=== PATIENT | male | born 1995 | race Caucasian/White ===

== ENCOUNTER 2020-09-14 14:58 | Outpatient (CLI) | payer OTHER ==
[2020-09-14 16:18] VITALS: BP 132/89
--- NOTE | 2020-09-14 16:18 | SLEEP CARE CONSULTATION ---
Information from patient questionnaire entered by Zachary Higginbotham. I have reviewed and concur with the information entered by Zachary Higginbotham. This document represents the service I personally performed and the decisions made by me, Doris Marie ARNP. History of Present Illness Service Date and Time: 09/14/2020 1454 Reason for Visit: New patient Chief Complaint: reports: Unrefreshed sleep, Snoring, Excessive daytime sleepiness, Observed pauses in breathing, Frequent awakenings at night Date of Onset: ~ 6 years Usual bedtime: 2200 Time it takes to fall asleep: 2 mins Snores at night: Yes Observed to quit breathing while asleep: Yes Sleeps alone due to snoring: No Number of times waking at night: 2-4 Reasons for waking at night: reports: Snoring, Other (unknown) Toss, Turn, or Twitch while sleeping: Yes Recalls having dreams: Yes Usually gets out of bed at: 0510; weekends up at 8-9 am Feels refreshed in the morning: No Morning headache: No Sleepy or fatigued during the day: Yes Ever fallen asleep while driving: No (drowsy driving, no accidents) Takes day naps: No Dreams during day naps: Yes Prior sleep studies: No Additional HPI information: I had the pleasure of seeing ARI CLEMENTS today regarding the possibility of him having a sleep disorder. His current complaints are snoring, daytime sleepiness and frequent night awakenings. He states daytime tiredness is a big p roblem and has been for years. His states he will stop breathing when sleeping and gasping for air in his sleep. He also snores pretty loud but his does not sleep in separate room. He is more concerned about the fatigue. He will wake up frequently during the night for no apparent reason. He has difficulty getting back to sleep, sometimes up to 45 minutes. 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 Patient is and lives in [place]. Have you smoked in the past 12 months: No Alcohol use: Yes Alcohol amount and frequency: 1 weekly Caffeine use: Yes Caffeine amount and frequency: 1 every few days Family History Family history of sleep disordered breathing: Yes (My Dad) Family Hx Sleep Apnea: Father: Snoring Allergies and Home Medications Drug allergies reviewed: Yes (NKDA) Home medication list reviewed: Yes (none) Review of Systems Weight gain over past 5 years: 20 Cardiovascular: reports: high blood pressure Gastrointestinal: denies: heartburn Neurological: denies: headaches Psychiatric: denies: anxiety, depression, mood disorder Ear/Nose/Throat: reports: nasal congestion, tonsillectomy, wisdom teeth removed Endocrine: reports: sluggishness (tired) Musculoskeletal: reports: joint pain, back pain Physical Exam Blood Pressure: 132/89 Cuff size: wrist Heart Rate: 70 O2 Saturation: 98 Height: 5 ft 11 in Weight: 200 lb Body Mass Index: 27.8 BMI Classification: Overweight Neck circumference: 15.5 (inches) Nostrils: patent to airflow Mouth and throat: narrow oropharynx Soft palate: long Hard palate: normal Uvula: normal Uvula visualization: 100% Mallampati Class I Tongue: normal in size Tonsils: absent bilaterally Chin and jaw: normal size and position Neck: normal w/o lymphadenopathy or thyromegaly Heart: regular rate and rhythm Lungs: clear bilaterally Impression and Plan 1. Suspected Obstructive Sleep Apnea-Hypopnea Syndrome, as suggested by a history of loud and irregular snoring, observed cessation of breath while asleep, gasping or choking in sleep, frequent awakening during the night, unrefreshed sleep, cognitive impairment, and excessive daytime sleepiness. Narrow oropharynx and obesity are common predisposing factors for obstructive sleep apnea-hypopnea syndrome. I recommend proceeding to polysomnography to confirm the diagnosis and to assess severity. If the patient has significant sleep disordered breathing, a manual CPAP titration study will also be performed to find the optimal treatment pressure. I informed the patient of what the sleep studies involve and after some discussion, obtained agreement to proceed. The pathophysiology of obstructive sleep apnea-hypopnea syndrome was discussed with the patient and health risks of cardiovascular and cerebrovascular disease if not treated. 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 Patient agreed to plan. * Schedule polysomnography +- manual CPAP titration study and return in 1-2 weeks after the study to discuss result and initiate therapy. * Avoid long distance driving or driving when feeling sleepy. * Avoid alcohol, sedative and muscle relaxant around bedtime. * Attempt to lose weight. * Review instructions provided by trained office staff on how to prepare for the sleep study. * Return for follow-up after sleep study completed. Counseling Topics: Weight loss health impact Visit Type: In Office Time Spent with Patient (minutes): 30 Provider Statement: I spent 100% of the Face to Face Visit with the patient with greater than 50% spent counseling the patient and coordination of care.
== END 2020-09-14 14:59 | disposition home or self-care (01) ==
LOC: SC 14:58
PROVIDERS: ATTEND Nurse Practitioner Family
DX: R06.83 Snoring (principal); R06.81 Apnea, not elsewhere classified; G47.8 Other sleep disorders; R41.89 Other symptoms and signs involving cognitive functions and awareness; G47.10 Hypersomnia, unspecified; E66.3 Overweight; Z68.27 Body mass index [BMI] 27.0-27.9, adult
CPT/HCPCS: 99203; 99212

== ENCOUNTER 2020-09-29 09:50 | Outpatient (CLI) | payer OTHER | END 2020-09-29 09:51 | disposition home or self-care (01) | LOC: SC 09:50 | PROVIDERS: ATTEND Nurse Practitioner Family | DX: G47.33 Obstructive sleep apnea (adult) (pediatric) (principal); R09.02 Hypoxemia; E66.3 Overweight; Z68.27 Body mass index [BMI] 27.0-27.9, adult | CPT/HCPCS: 95806 ==

== ENCOUNTER 2020-10-14 17:06 | Outpatient (CLI) | payer OTHER ==
--- NOTE | 2020-10-14 17:25 | SLEEP CARE CONSULTATION ---
Information from patient questionnaire entered by Zachary Higginbotham. I have reviewed and concur with the information entered by Zachary Higginbotham. This document represents the service I personally performed and the decisions made by me, Doris Marie ARNP. History of Present Illness Service Date and Time: 10/14/20201705 Initial [place] Sleepiness Scale score: 14 (in 2020) Current [place] Sleepiness Scale score: 14 Additional HPI information: ARI CLEMENTS returns via Telehealth visit for follow up and results of the recently performed home sleep study. He was found to have moderate obstructive sleep apnea with an average AHI of 26.0 and fariha oxygen saturation of 85%. I explained the pathophysiology behind obstructive sleep apnea. We then spent quite a bit of time discussing different treatment options. For mild obstructive sleep apnea, surgery and oral appliance are alternatives to nasal CPAP therapy but in moderate or severe cases, nasal CPAP is the most effective and reliable treatment. Because apnea is primarily in supine position, then positional management therapy could be effective. Methods discussed such as positioning with pillows, using a T-shirt with tennis balls in the back, and shown commercial products that have a pillow format on back to prevent supine sleep. I reviewed the impact of weight changes on sleep apnea and strongly recommended losing weight. After some discussion, the patient opted to go with the nasal CPAP therapy. Nasal autoCPAP set at 4-15 cmH20 will be ordered with rationale explained. A manual titration study will be ordered if unable to find optimal pressure with office adjustments. I explained how CPAP machine works and what to expect when using the machine. Using CPAP every night in order to get used to it was emphasized. Patient advised to put CPAP mask on before getting into bed so as not to fall asleep without CPAP. To assist acclimation to CPAP use, it could also be used for a short time during day while reading or watching TV. The patient was instructed to call the CPAP supplier to discuss any mechanical problem that may occur. If the mask given is uncomfortable or is difficult to keep on through the night even with adjustment, contact the CPAP supplier as many will replace with another mask style if notified before 30 days. If snoring or perceives is not getting enough air or too much air from the machine, notify this office. Patient counseled not drink alcohol less than 4 hours before bedtime as it can increase snoring and apnea. Patient was cautioned about risks of drowsy driving until sleepiness symptoms resolve. Sleep Study - Results Type of Sleep Study: Home sleep study Prior sleep studies: No Polysomnography/Home Sleep Study results: Physician Impression: The quality of the study is good. The length of the study is adequate (> 240 minutes). Please also see the tabulated and graphic data. 1. Obstructive Sleep Apnea-Hypopnea (ICD-10 G47.33), moderate, with an AHI of 26.0/hr and fariha SaO2 of 85%. During the study, the patient had 146 apneas (146 obstructive, 0 central, 0 mixed) and 22 hypopneas. The longest episode lasted 113.0 seconds. The patient only slept supine during this study (supine AHI was 26.1 and non-supine, 0.00). 2. Hypoxemia (ICD-10 R09.02), mild, with the lowest oxygen saturation of 85 % and 21.8 minutes with SaO2 under 90%. Baseline oxygen saturation was normal (Average oxygen saturation was 92%). Allergies and Home Medications Home medication list reviewed: Yes (no new medications) Review of Systems Review of systems same as previous: Yes (no changes) Physical Exam Vital signs obtained and entered by: Telehealth visit to reduce exposure during Covid pandemic Height: 5 ft 11 in Impression and Plan 1. Obstructive Sleep Apnea-Hypopnea Syndrome, moderate, with lowest oxygen saturation of 85%. Obviously this is the cause of the patients symptoms of unrefreshed sleep, and excessive daytime sleepiness. Positive pressure therapy could benefit hypertension. As mentioned above, the patient will be started on nasal autoCPAP therapy with pressure set at 4-15 cmH2O. Compliance guidelines also reviewed. A copy of compliance guidelines will be given for reference at check out. Because the apnea is more severe supine, I instructed to avoid sleeping supine using pillow positioning until able to start CPAP use. * Nasal auto CPAP therapy, pressure at 4-15 cm H2O. * Attempt to lose weight. * Avoid alcohol consumption near bedtime. * Avoid supine sleep until using CPAP. * The patient is again cautioned about driving until sleepiness completely resolves. * Return one month after CPAP obtained. I will assess response to therapy and compliance at that time. Counseling Topics: Weight loss health impact Visit Type: Telehealth Video Video Type: VSee Patient Location: Home Location of Provider: Office Patient agrees and consents to this telehealth visit type: Yes Patient agrees to have their insurance billed: Yes Time Spent with Patient (minutes): 16 Provider Statement: I spent 100% of the Telehealth Video Call with the patient with greater than 50% spent counseling the patient and coordination of care.
== END 2020-10-14 17:07 | disposition home or self-care (01) ==
LOC: SC 17:06
PROVIDERS: ATTEND Nurse Practitioner Family
DX: G47.33 Obstructive sleep apnea (adult) (pediatric) (principal)

== ENCOUNTER 2020-12-06 13:03 | Outpatient (CLI) | payer OTHER ==
--- NOTE | 2020-12-06 13:45 | SLEEP CARE CONSULTATION ---
Information from patient questionnaire entered by Denia Rodriguez. I have reviewed and concur with the information entered by Denia Rodriguez. This document represents the service I personally performed and the decisions made by , Doris Marie ARNP. History of Present Illness Service Date and Time: 12/06/2020 1303 Previous diagnosis: Moderate, Obstructive Sleep Apnea-Hypopnea Syndrome AHI: 26.0 (in 2020) Reason for follow up: first compliance Equipment type: CPAP Equipment obtained from: Other ([facility]; got initial supplies) Mask style: Full face Mask brand: Resmed Backup mask available: Yes (other mask) Last cushion change: 30 days Prior sleep studies: Yes Year and Where: 2020 - [facility] Type of Sleep Study: Home sleep study HPI additional information: ARI CLEMENTS was diagnosed to have moderate, AHI 26.0, obstructive sleep apnea-hypopnea syndrome and returned today for CPAP therapy first compliance follow-up. CPAP Compliance Data - Data Reviewed with Patient Average duration of nightly device use: 7 hr 7 min Compliance rate %: 77 Current pressure setting (cmH2O): 4-15 (median 5.5, avg 7.7, max 9.4) Humidity settin Average residual AHI: 1.7 Subjective Missed days of use due to: reports: illness Patient concerns: reports: mask discomfort. denies: aerophagia, air blowing in eyes, mask leak noise, condensation in mask/hose, nasal congestion, dry mouth, nose, throat, epistaxis, other Observed to snore while using device: No Current pressure setting perceived as: comfortable On therapy, patient: reports: sleeping better, awakening more refreshed, being more awake and alert during the day, more rested overall, other (no longer having headaches in the morning). denies: drowsiness while driving Initial [place] Sleepiness Scale score: 14 (in 2020) Current [place] Sleepiness Scale score: 6 Allergies and Home Medications Home medication list reviewed: Yes (no changes) Review of Systems Review of systems same as previous: Yes (no changes) Physical Exam Heart Rate: 78 O2 Saturation: 97 Height: 5 ft 11 in Weight: 206 lb Body Mass Index: 28.7 BMI Classification: Overweight Impression and Plan 1. Obstructive Sleep Apnea-Hypopnea Syndrome, moderate, with good treatment compliance and good apnea control. On CPAP therapy, the patient has better sleep quality and is more rested overall. He has overall satisfied with his treatment. I will adjust his pressures to reflect those pressures he is using to 6 -10 cmH2O and have him follow-up in 1 to 2 months. He has had some mask issues, finding it off of his face at times but states overall he is getting used to it on his face except for nights when he is having trouble breathing through his nose. He does have a nasal septum problem that he intends to address with an ENT when able. He went with a full face mask to try and compensate for times when he is not able to breathe through his nose and so far this is working overall. Patient's apnea severity and rationale for treatment to reduce apnea, improve sleep quality and reduce cardiovascular and cerebrovascular events was reviewed. I also reviewed the benefit of consistent device use of CPAP for hypertension. * Change auto CPAP pressure to 6-10 cmH2O * Notify me if snoring with mask or feeling that the pressure is too much or too little * Attempt to lose weight * Call this office if any problems using CPAP * Return for follow up in 1-2 months, or sooner if concerns arise Counseling Topics: Spare mask, Weight loss health impact Visit Type: In Office Time Spent with Patient (minutes): 20 Provider Statement: I spent 100% of the Face to Face Visit with the patient with greater than 50% spent counseling the patient and coordination of care.
== END 2020-12-06 13:04 | disposition home or self-care (01) ==
LOC: SC 13:03
PROVIDERS: ATTEND Nurse Practitioner Family
DX: G47.33 Obstructive sleep apnea (adult) (pediatric) (principal); E66.3 Overweight; Z68.28 Body mass index [BMI] 28.0-28.9, adult
CPT/HCPCS: 99212; 99213

== ENCOUNTER 2021-01-17 12:50 | Outpatient (CLI) | payer OTHER ==
--- NOTE | 2021-01-17 13:38 | SLEEP CARE CONSULTATION ---
Information from patient questionnaire entered by Denia Rodriguez. I have reviewed and concur with the information entered by Denia Rodriguez. This document represents the service I personally performed and the decisions made by , Doris Marie ARNP. History of Present Illness Service Date and Time: 01/17/2021 1250 Previous diagnosis: Moderate, Obstructive Sleep Apnea-Hypopnea Syndrome AHI: 26.0 (in 2020) Reason for follow up: other (6 week with pressure change) Equipment type: CPAP Equipment obtained from: Other ([facility]; needs to call to get supplies) Mask style: Full face Mask brand: Resmed Backup mask available: Yes (other mask) Last cushion change: 2 months Prior sleep studies: Yes Year and Where: 2020 - [facility] Type of Sleep Study: Home sleep study HPI additional information: ARI CLEMENTS was diagnosed to have moderate, AHI 26.0, obstructive sleep apnea-hypopnea syndrome and returned today for CPAP therapy 6 week pressure change follow-up. 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 denies: drowsiness while driving Initial [place] Sleepiness Scale score: 14 (in 2020) Current [place] Sleepiness Scale score: 7 Allergies and Home Medications Home medication list reviewed: Yes (no changes) Review of Systems Review of systems same as previous: Yes (no changes) Physical Exam Heart Rate: 63 O2 Saturation: 99 Height: 5 ft 11 in Weight: 197 lb Body Mass Index: 27.4 BMI Classification: Overweight Impression and Plan 1. Obstructive Sleep Apnea-Hypopnea Syndrome, moderate, with good treatment compliance and good apnea control. On CPAP therapy, the patient has better sleep quality and is more rested overall. He does not believe the mask is comfortable. But he is able to adjust it when there is any mask leakage from laying on his side to reduce any sounds or air in his eyes. Things are going well and he has seen some improvement. He thinks things will regulate even further when he is able to get more stable work schedule coming next month. He does try to walk every day with his dog. He is trying to make better food choices. I discussed with him that these things will help him to get to a healthier weight. He voiced understanding. Patient's apnea severity and rationale for treatment to reduce apnea, improve sleep quality and reduce cardiovascular and cerebrovascular events was reviewed. I also reviewed the benefit of consistent device use of CPAP for hypertension. * Continue auto CPAP pressure at 6-10 cmH2O * Notify me if snoring with mask or feeling that the pressure is too much or too little * Attempt to lose weight * Call this office if any problems using CPAP * Return for follow up in 3 months, or sooner if concerns arise Counseling Topics: Spare mask, Weight loss health impact, Activity level Visit Type: In Office Time Spent with Patient (minutes): 11 Provider Statement: I spent 100% of the Face to Face Visit with the patient with greater than 50% spent counseling the patient and coordination of care.
== END 2021-01-17 12:51 | disposition home or self-care (01) ==
LOC: SC 12:50
PROVIDERS: ATTEND Nurse Practitioner Family
DX: G47.33 Obstructive sleep apnea (adult) (pediatric) (principal)
CPT/HCPCS: 99212

== ENCOUNTER 2021-08-16 13:51 | Outpatient (CLI) | payer OTHER ==
[2021-08-16 14:51] VITALS: BP 130/83
--- NOTE | 2021-08-16 14:51 | SLEEP CARE CONSULTATION ---
Information from patient questionnaire entered by Jazmin Hemphill MA. I have reviewed and concur with the information entered by Jazmin Hemphill MA. This document represents the service I personally performed and the decisions made by , Doris Marie ARNP. History of Present Illness Service Date and Time: 08/16/2021 1351 Previous diagnosis: Moderate, Obstructive Sleep Apnea-Hypopnea Syndrome AHI: 26.0 (in 2020) Reason for follow up: other (7 MONTH F/U, ) Equipment type: CPAP Equipment obtained from: Other ([facility]; getting supplies) Mask style: Full face Backup mask available: Yes (old mask) Last cushion change: 3 weeks Prior sleep studies: Yes Year and Where: 2020 - [facility] Type of Sleep Study: Home sleep study HPI additional information: ARI CLEMENTS was diagnosed to have moderate, AHI 26.0, obstructive sleep apnea-hypopnea syndrome and returned today for CPAP therapy 7 month follow-up. Sleep Study - Results Type of Sleep Study: Home sleep study Prior sleep studies: Yes Year and Where: 2020 - [facility] CPAP Compliance Data - Data Reviewed with Patient Average duration of nightly device use: 8 HOURS 10 MINUTES Compliance rate %: 87 Current pressure setting (cmH2O): 6-10 Average residual AHI: 0.8 Central apnea: .3 Obstructive apnea: .2 Average large leak: .9 Subjective Missed days of use due to: reports: travel, other (DIFFERENT SCHEDULES) Patient concerns: reports: other (waking up during night (at least 4 times) and not able to go back to sleep). denies: aerophagia, mask discomfort, air blowing in eyes, mask leak noise, condensation in mask/hose, nasal congestion, dry mouth, nose, throat, epistaxis Observed to snore while using device: No Current pressure setting perceived as: comfortable On therapy, patient: reports: drowsiness while driving, other (He know it helps but because of other issues (anxiety) he still feels tired in the mornings and during the day) Initial [place] Sleepiness Scale score: 14 (in 2020) Current [place] Sleepiness Scale score: 15 (2021) Allergies and Home Medications Known drug allergies: No Drug allergies reviewed: Yes Home medication list reviewed: Yes (Sertraline, Amlodipine) Review of Systems Review of systems same as previous: No (anxiety, possible ADHD; twitching more in sleep) Physical Exam Vital signs obtained and entered by: JOSE MANUEL SWANSON Blood Pressure: 130/83 (LEFT, RESP 16, PULSE 67,) Cuff size: wrist (2 X BP DUE TO HIS CONDITION, LEFT ARM 128/86,) Heart Rate: 73 O2 Saturation: 97 Height: 5 ft 11 in Weight: 196 lb (WITH UNIFORN AND BOOTS) Weight change since last visit: PT HAS HX OF rAYNAUD'S SYNDROM. Body Mass Index: 27.3 BMI Classification: Overweight Impression and Plan 1. Obstructive Sleep Apnea-Hypopnea Syndrome, moderate, with good treatment compliance and excellent apnea control. Ari can tell the difference in how he feels on days he does use his CPAP, he does feel physically better. But he still has some daytime fatigue, sleepiness and unrefreshed sleep. Patient significant evaluated for ADHD. His primary care in psychiatrist both feel he has attention deficit. He would just like to be able to feel rested. Patient's apnea severity and rationale for treatment to reduce apnea, improve sleep quality and reduce cardiovascular and cerebrovascular events was reviewed. I also reviewed the benefit of consistent device use of CPAP for hypertension. Patient was encouraged to try to lose weight to reduce apneas and improve his overall health. 2. Insomnia, unspecified. Patient states that it varies on how well he can get to sleep at night. Some days he is really quick to fall asleep, other days it takes a few hours, especially if having anxiety and churning thoughts. He was started on sertraline which is helping to calm his mind enough to go to sleep. He will still wake up several times during the night for no apparent reason and not be able to go back to sleep. Other times he will be able to fall back to sleep in a few minutes. He states he is having some jerking movements or twitching in sleep for the last 6 weeks. He states the twitching does not wake him but tells him she has been hit with his twitching arm. I discussed with him waiting to see what they do about his ADHD. Sometimes they treat this with medication which could also help with his daytime hypersomnia. He voiced understanding and agreement with this plan of care. I will have him follow-up in 3 months. * Continue auto CPAP pressure at 6-10 cmH2O * Notify me if snoring with mask or feeling that the pressure is too much or too little * Attempt to lose weight * Call this office if any problems using CPAP * Return for follow up in 3 months, or sooner if concerns arise Counseling Topics: Weight loss health impact Visit Type: In Office Time Spent with Patient (minutes): 22 Provider Statement: I spent 100% of the Face to Face Visit with the patient with greater than 50% spent counseling the patient and coordination of care.
== END 2021-08-16 13:52 | disposition home or self-care (01) ==
LOC: SC 13:51
PROVIDERS: ATTEND Nurse Practitioner Family
DX: G47.33 Obstructive sleep apnea (adult) (pediatric) (principal); G47.00 Insomnia, unspecified
CPT/HCPCS: 99212; 99213

== ENCOUNTER 2021-12-08 13:22 | Outpatient (CLI) | payer OTHER ==
[2021-12-08 14:20] VITALS: BP 123/79
--- NOTE | 2021-12-08 14:20 | SLEEP CARE CONSULTATION ---
Information from patient questionnaire entered by Jazmin Florentino MA. I have reviewed and concur with the information entered by Jazmin Florentino MA. This document represents the service I personally performed and the decisions made by , Doris Marie ARNP. History of Present Illness Service Date and Time: 12/08/2021 1322 Previous diagnosis: Moderate, Obstructive Sleep Apnea-Hypopnea Syndrome AHI: 26.0 (in 2020) Reason for follow up: three month (CRISTIN SPEARS 10/30/2020, ) Equipment type: CPAP Equipment obtained from: Other ([facility]; getting supplies) Mask style: Full face Backup mask available: Yes (old mask) Last cushion change: 2 weeks ago Prior sleep studies: Yes Year and Where: 2020 - [facility] Type of Sleep Study: Home sleep study HPI additional information: ARI CLEMENTS was diagnosed to have moderate, AHI 26.0, obstructive sleep apnea-hypopnea syndrome and returned today for CPAP therapy three month follow- up. Sleep Study - Results Type of Sleep Study: Home sleep study Prior sleep studies: Yes Year and Where: 2020 - [facility] CPAP Compliance Data - Data Reviewed with Patient Average duration of nightly device use: 7 HOURS 56 MINUTES Compliance rate %: 88 Current pressure setting (cmH2O): 6-10 Average residual AHI: 1.0 Central apnea: .3 Obstructive apnea: .3 Hypopnea: .3 Average large leak: 1.5 Subjective Missed days of use due to: reports: travel (, ) Patient concerns: denies: aerophagia, mask discomfort, air blowing in eyes, mask leak noise, condensation in mask/hose, nasal congestion, dry mouth, nose, throat, epistaxis, other Observed to snore while using device: Yes (occasionally per his ) Current pressure setting perceived as: comfortable (MAYBE A LITTLE LOW) On therapy, patient: reports: other (worse without CPAP but still tired and having sleepiness during the day) Initial [place] Sleepiness Scale score: 14 (in 2020) Current [place] Sleepiness Scale score: 18 (12/08/2021) Allergies and Home Medications Home medication list reviewed: Yes (increase sertraline 150 mg daily for anxiety; started and stopped Strattera) Review of Systems Review of systems same as previous: Yes (ADHD diagnosis) Physical Exam Vital signs obtained and entered by: Nadeen FLORENTINO CMA AARADHA Blood Pressure: 123/79 (RESP 18, PULSE 61, LEFT,) Heart Rate: 69 O2 Saturation: 97 (PAPER MASK) Height: 5 ft 11 in Weight: 186 lb 8 oz Body Mass Index: 25.9 BMI Classification: Overweight Impression and Plan 1. Obstructive Sleep Apnea-Hypopnea Syndrome, moderate, with good treatment compliance and excellent apnea control. On CPAP therapy, the patient does feel a difference on his restfulness when he uses the CPAP but is still not refreshed in the morning and has daytime sleepiness issues. He states he still gets sleepy while driving, which makes him worry. Patient denies problems with oral dryness, nasal congestion, epistaxis, skin irritation or aerophagia. Patient's apnea severity and rationale for treatment to reduce apnea, improve sleep quality and reduce cardiovascular and cerebrovascular events was reviewed. I also reviewed the benefit of consistent device use of CPAP for hypertension, anxiety and ADHD. 2. Excessive daytime sleepiness. Patient with recent diagnosis of ADHD. He was started on Strattera for his ADHD but patient did not like the way he felt. They are talking about starting him on Wellbutrin to treat his attention deficit. He has not yet started this medication. They told him they do not want to start him on a stimulant because they do not want to take that responsibility. Patient continues to be very sleepy during the daytime, having problems with drowsy driving (even short distances) and does not wake up feeling refreshed despite getting 7 hours 56 minutes of sleep nightly on his CPAP. I will discuss with Dr. Dickinson to see if we should send him for an MSLT for further evaluation and treatment if necessary. * Continue auto CPAP pressure at 6-10 cmH2O * Notify me if snoring with mask or feeling that the pressure is too much or too little * Attempt to lose weight * Call this office if any problems using CPAP * Return for follow up in 1 year, or sooner if concerns arise Counseling Topics: Spare mask, Weight loss health impact Visit Type: In Office Time Spent with Patient (minutes): 24 Provider Statement: I spent 100% of the Face to Face Visit with the patient with greater than 50% spent counseling the patient and coordination of care.
== END 2021-12-08 13:23 | disposition home or self-care (01) ==
LOC: SC 13:22
PROVIDERS: ATTEND Nurse Practitioner Family
DX: G47.33 Obstructive sleep apnea (adult) (pediatric) (principal); G47.10 Hypersomnia, unspecified
CPT/HCPCS: 99212; 99213

== ENCOUNTER 2022-01-19 09:01 | Outpatient (CLI) | payer OTHER ==
[2022-01-19 09:54] VITALS: BP 141/89
--- NOTE | 2022-01-19 09:54 | SLEEP CARE CONSULTATION ---
Information from patient questionnaire entered by Jazmin Hemphill MA. I have reviewed and concur with the information entered by Jazmin Hemphill MA. This document represents the service I personally performed and the decisions made by , Doris Marie ARNP. History of Present Illness Service Date and Time: 01/19/2022 0901 Previous diagnosis: Moderate, Obstructive Sleep Apnea-Hypopnea Syndrome AHI: 26.0 (in 2020) Reason for follow up: one month (CRISTIN SPEARS 10/31/2020, ) Equipment type: CPAP Equipment obtained from: Other ([facility]; getting supplies) Mask style: Full face Backup mask available: Yes (old mask) Last cushion change: last week Prior sleep studies: Yes Year and Where: 2020 - [facility] Type of Sleep Study: Home sleep study HPI additional information: ARI CLEMENTS was diagnosed to have moderate, AHI 26.0, obstructive sleep apnea-hypopnea syndrome and returned today for CPAP therapy one month follow-up. Sleep Study - Results Type of Sleep Study: Home sleep study Prior sleep studies: Yes Year and Where: 2020 - [facility] CPAP Compliance Data - Data Reviewed with Patient Average duration of nightly device use: 7 HOURS 53 MINUTES Compliance rate %: 97 (12/19/21-01/17/22; 29/30 days used) Current pressure setting (cmH2O): 6-10 Average residual AHI: 1.2 Central apnea: .4 Obstructive apnea: .4 Hypopnea: .4 Average large leak: .0 Subjective Missed days of use due to: reports: travel (work) Patient concerns: reports: nasal congestion, dry mouth, nose, throat, epistaxis, other. denies: aerophagia, mask discomfort, air blowing in eyes, mask leak noise Observed to snore while using device: No Current pressure setting perceived as: comfortable On therapy, patient: reports: sleeping better, awakening more refreshed, being more awake and alert during the day, more rested overall, drowsiness while driving Initial [place] Sleepiness Scale score: 14 (in 2020) Current [place] Sleepiness Scale score: 17 (01/19/2022) Allergies and Home Medications Known drug allergies: No ([facility]NA) Drug allergies reviewed: Yes Home medication list reviewed: Yes Allergy and home medication list: Sertraline for anxiety Amlodipine Review of Systems Review of systems same as previous: Yes (no changes) Physical Exam Vital signs obtained and entered by: JOSE MANUEL SWANSON Blood Pressure: 141/89 (RESP 18, LEFT) Cuff size: wrist Heart Rate: 62 O2 Saturation: 99 (PAPER MASK) Height: 5 ft 11 in Weight: 190 lb (UNIFORM AND BOOTS) Body Mass Index: 26.4 BMI Classification: Overweight Impression and Plan 1. Obstructive Sleep Apnea-Hypopnea Syndrome, moderate, with good treatment compliance and good apnea control. On CPAP therapy, the patient has better sleep quality and is more rested overall. Patient is very compliant with his CPAP therapy. Patient has significant improvement of his sleep apnea but continues to have excessive daytime sleepiness with an [place] of 17 out of 24 possible today. Patient's apnea severity and rationale for treatment to reduce apnea, improve sleep quality and reduce cardiovascular and cerebrovascular events was reviewed. I also reviewed the benefit of consistent device use of CPAP for hypertension, anxiety and ADHD. 2. Excessive daytime sleepiness, with adequate and effective CPAP treatment. [place] 17/24. Patient does have attention deficit disorder but his current physician wants to get his sleep and daytime sleepiness and better control before trying further treatment. He is on sertraline for his anxiety. After some discussion, patient will be started on Modafinil 100 mg in the morning and will follow-up here in one month. I reviewed adverse reactions including GI upset. Patient to watch for signs and symptoms of a rash, changes in mental status including depression, elevation of heart rate or blood pressure or any other concerning symptoms after starting this medication. I handout with these adverse conditions was given to patient for his review. Patient voiced understanding and agreement with this plan of care. * Continue auto CPAP pressure at 6-10 cmH2O * Start Modafinil 100 mg in AM * Notify me if snoring with mask or feeling that the pressure is too much or too little * Call this office if any problems using CPAP * Return for follow up in 1 month, or sooner if concerns arise Counseling Topics: Spare mask Follow up with Sleep Care in: 1-2 months Visit Type: In Office Time Spent with Patient (minutes): 22 Provider Statement: I spent 100% of the Face to Face Visit with the patient with greater than 50% spent counseling the patient and coordination of care.
== END 2022-01-19 09:02 | disposition home or self-care (01) ==
LOC: SC 09:01
PROVIDERS: ATTEND Nurse Practitioner Family
DX: G47.33 Obstructive sleep apnea (adult) (pediatric) (principal); G47.10 Hypersomnia, unspecified; F98.8 Other specified behavioral and emotional disorders with onset usually occurring in childhood and adolescence; F41.9 Anxiety disorder, unspecified
CPT/HCPCS: 99212

== ENCOUNTER 2022-04-03 08:54 | Outpatient (CLI) | payer OTHER ==
[2022-04-03 09:48] VITALS: BP 118/82
--- NOTE | 2022-04-03 09:48 | SLEEP CARE CONSULTATION ---
Information from patient questionnaire entered by Tereza Baires. I have reviewed and concur with the information entered by Tereza Baires. This document represents the service I personally performed and the decisions made by me, Doris Marie ARNP. History of Present Illness Service Date and Time: 04/03/2022 0854 Previous diagnosis: Moderate, Obstructive Sleep Apnea-Hypopnea Syndrome AHI: 26.0 (in 2020) Reason for follow up: other (6 week f/u) Equipment type: CPAP (resmed) Equipment obtained from: Other ([facility]; getting supplies) Mask style: Full face Backup mask available: Yes (old mask) Last cushion change: last week Prior sleep studies: Yes Year and Where: 2020 - [facility] Type of Sleep Study: Home sleep study HPI additional information: ARI CLEMENTS was diagnosed to have moderate, AHI 26.0, obstructive sleep apnea-hypopnea syndrome with excessive daytime sleepiness, on Modafinil, and returned today for CPAP therapy 6 week follow-up. 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 denies: drowsiness while driving Initial [place] Sleepiness Scale score: 14 (in 2020) Current [place] Sleepiness Scale score: 12 (04/03/22) Allergies and Home Medications Home medication list reviewed: Yes (no changes) Review of Systems Review of systems same as previous: Yes (no changes) Physical Exam Vital signs obtained and entered by: RADHA SANCHEZ Blood Pressure: 118/82 (left arm ) Cuff size: regular Heart Rate: 78 O2 Saturation: 96 Height: 5 ft 11 in Weight: 207 lb Body Mass Index: 28.8 BMI Classification: Overweight Impression and Plan 1. Obstructive Sleep Apnea-Hypopnea Syndrome, moderate, with good treatment compliance and good apnea control. On CPAP therapy, the patient has better sleep quality and is more rested overall. Patient is satisfied with current CPAP therapy and has significant improvement of his sleep apnea. We will update his supplies for the next year. Patient's apnea severity and rationale for treatmen t to reduce apnea, improve sleep quality and reduce cardiovascular and cerebrovascular events was reviewed. I also reviewed the benefit of consistent device use of CPAP for hypertension, anxiety and attention deficit. 2. Excessive daytime sleepiness with effective CPAP therapy. Patient's Modafinil increased to 200 mg daily at last visit. Patient feels the dose 200 mg in the morning of the Modafinil has been really doing well for him. He states his drowsy driving has improved tremendously although he still fell asleep and his drove when in the passenger seat for 1-1/2-hour drive. He states when he gets up he still gets pretty tired and late afternoon period and is not motivated to do much. He did not try splitting the dose of 200 mg in the morning and afternoon. Overall, patient seem much improved on the Modafinil 200 mg in the morning with residual afternoon fatigue. We discussed that increasing dose may not give much more improvement but patient he would like to try to improve his afternoon sleepiness. I will have him continue Modafinil 200 mg in the morning and add 100 mg in afternoon between 12 and 1 PM. He voiced understanding, agreement with plan and will monitor for any side effects such as a rash or GI upset. * Continue autoCPAP pressure at 6-10 cmH2O * Update supplies * Continue Modafinil at 200 mg in the morning and start 100 mg in afternoon (12- 1 PM), prescription written * Notify me if snoring with mask or feeling that the pressure is too much or too little * Call this office if any problems using CPAP * Return for follow up in 1 year, or sooner if concerns arise Counseling Topics: Spare mask Visit Type: In Office Time Spent with Patient (minutes): 24 Provider Statement: I spent 100% of the Face to Face Visit with the patient with greater than 50% spent counseling the patient and coordination of care.
== END 2022-04-03 08:55 | disposition home or self-care (01) ==
LOC: SC 08:54
PROVIDERS: ATTEND Nurse Practitioner Family
DX: G47.33 Obstructive sleep apnea (adult) (pediatric) (principal); G47.10 Hypersomnia, unspecified
CPT/HCPCS: 99212; 99213